=== PATIENT | female | born 1960 | race Caucasian/White ===

== ENCOUNTER 2017-06-16 11:32 | Emergency (ER) | payer MEDICARE ==
[2017-06-16 14:35] LABS: Urine Bilirubin Negative (Negative); Urine Glucose Negative (Negative); Urine Nitrite Negative (Negative)
[2017-06-16 15:17] LABS: Hematocrit 41 % (35-47); Hemoglobin 14.2 g/dl (12.0-16.0); Mean Corpuscular HGB Conc 35 g/dl (31-36); Mean Corpuscular Hemoglobin 30 pg (27-31); Mean Corpuscular Volume 85 fL (80-97); Mean Platelet Volume 7 um3 (7.4-10.4); Red Blood Count 4.77 10^6/ul (4.0-5.4); Red Cell Distribution Width 14 % (10.5-15); White Blood Count 8.3 10^3/ul (3.5-10.8)
[2017-06-16 15:28] LABS: Albumin 4.4 g/dL (3.2-5.2); C Reactive Protein 4.52 mg/L (< 5.00); Calcium 9.9 mg/dL (8.6-10.3); EGFR African American 102.1 (>60); EGFR Non-African American 79.4 (>60); Globulin 3.7 g/dL (2-4); Potassium 3.8 mmol/L (3.5-5.0); Total Bilirubin 0.7 mg/dL (0.2-1.0); Total Protein 8.1 g/dL (6.4-8.9)
--- NOTE | 2017-06-16 16:19 | RAD ---
CLINICAL HISTORY: Right lower quadrant pain. Relevant surgical history includes partial hysterectomy. COMPARISON: CT of the abdomen dated July 02, 2016 TECHNIQUE: Oral contrast only CT examination of the abdomen and pelvis from the lung bases through the initial tuberosities. FINDINGS: VISUALIZED LUNG BASES: The visualized lung bases are grossly clear. There is no pleural effusion. ABDOMEN AND PELVIS: Evaluation of the solid organs and vasculature is limited without intravenous contrast. The liver, spleen, pancreas and adrenal glands are grossly normal in appearance. The gallbladder is normal. The kidneys are normal in appearance without focal mass, calcification or signs of hydronephrosis. The oral contrast has progressed as far as the sigmoid colon. The small and large bowel are not distended.The patient's normal appendix is identified in the right lower quadrant measuring just under 4 mm in diameter with contrast partially filling the lumen. In the right lower quadrant, best depicted on the coronal plane images (image 43), is an ill-defined focus measuring 1.2 x 2 cm in the coronal plane surrounded by vague infiltration of the mesenteric fat (axial image 67). There is no gross retroperitoneal or mesenteric lymphadenopathy. The uterus is surgically absent. The abdominal aorta and iliac arteries are normal in course and diameter. Degenerative changes include multilevel loss of intervertebral disc height involving the lower thoracic and lumbar spine and vacuum disc phenomenon at L5/S1.There are no sinister bone lesions. IMPRESSION: 1. Focus of inflammation in the right lower quadrant peritoneal fat. Differential diagnosis includes epiploic appendicitis, mesenteric panniculitis or omental infarction. 2. Additional chronic, degenerative and iatrogenic findings described in body the report.
[2017-06-16] MEDS ORDERED: Ketorolac INJ* 30 MG/ML 1 ML VIAL IV PUSH ONE (16:23)
[2017-06-16 17:16] VITALS: BP 128/67
--- NOTE | 2017-06-18 15:12 | ED ---
Grace Paulino Gabriel, scribed for Salvador Masters MD on 06/16/17 at 1259 . Abdominal Pain/Female - HPI Summary HPI Summary: This patient is a 57 year old F presenting to [facility] with a chief complaint of ABD pain since 2 days ago that is getting worse. The patient rates the pain 10/ 10 in severity and located in her RLQ. Patient reports nausea. Patient denies vomiting, - History of Current Complaint Chief Complaint: EDAbdPain Stated Complaint: ABD CRAMPING Time Seen by Provider: 06/16/17 12:42 Hx Obtained From: Patient Onset/Duration: Lasting Days - 2, Still Present Timing: Constant Severity Initially: Mild Severity Currently: Severe Pain Intensity: 10 Pain Scale Used: 0-10 Numeric Location: Discrete At: RLQ Associated Signs and Symptoms: Positive: Nausea. Negative: Vomiting Allergies/Adverse Reactions: Allergies Allergy/AdvReac Type Severity Reaction Status Date / Time Iodinated Diagnostic Agents Allergy Rash Verified 09/24/13 17:04 PMH/Surg Hx/FS Hx/Imm Hx Previously Healthy: No Endocrine/Hematology History: Denies: Hx Diabetes Cardiovascular History: Denies: Hx Hypertension, Hx Pacemaker/ICD Respiratory History: Denies: Hx Asthma Sensory History: Denies: Hx Hearing Aid Psychiatric History: Denies: Hx Panic Disorder - Cancer History Hx Chemotherapy: No Hx Radiation Therapy: No - Surgical History Surgery Procedure, Year, and Place: FUSION C4-7 PLATES AND SCREWS 1998; C SECTION X3; MAMMOPLASTY 1989; ABDOMINAL MUSCLE REPAIR 1989; PARTIAL HYSTERECTOMY 1988; Infectious Disease History: No Infectious Disease History: Denies: Traveled Outside the [place] in Last 30 Days - Family History Known Family History: Positive: Other - Hx Breast CA in sister, paternal and maternal aunts - Social History Alcohol Use: Occasionally Hx Substance Use: No Substance Use Type: Reports: None Hx Tobacco Use: No Smoking Status (MU): Never Smoked Tobacco Review of Systems Negative: Fever Positive: Abdominal Pain, Nausea. Negative: Vomiting All Other Systems Reviewed And Are Negative: Yes Physical Exam - Summary Physical Exam Summary: VITAL SIGNS: Reviewed. GENERAL: Patient is a well-developed and nourished female who is lying comfortable in the stretcher. ~Patient is not in any acute respiratory distress. HEAD AND FACE: Normocephalic and atraumatic. EYES: PERRLA, EOMI x 2, No injected conjunctiva. EARS: Hearing grossly intact. Ear canals and tympanic membranes are WNL. MOUTH: Oropharynx within normal limits. NECK: Supple, trachea is midline, no adenopathy, no JVD. CHEST: Symmetric, no tenderness at palpation LUNGS: Clear to auscultation bilaterally. No wheezing or crackles. CVS: RRR, S1 and S2 present, no murmurs or gallops appreciated. ABDOMEN: Soft, RLQ tenderness. No signs of distention. Positive bowel sounds. No rebound no guarding, and no masses palpated. No abdominal bruit or pulsations. EXTREMITIES: FROM in all major joints, no edema, no cyanosis or clubbing. NEURO: Alert and oriented x 3. No acute neurological deficits. Speech is normal. SKIN: Dry and warm Triage Information Reviewed: Yes Vital Signs On Initial Exam: Initial Vitals Temp Pulse Resp BP Pulse Ox 98.1 F 80 16 141/84 100 06/16/17 12:15 06/16/17 12:15 06/16/17 12:15 06/16/17 12:15 06/16/17 12:15 Vital Signs Reviewed: Yes Diagnostics - Vital Signs Vital Signs Temp Pulse Resp BP Pulse Ox 06/16/17 12:15 98.1 F 80 16 141/84 100 - Laboratory Result Diagrams: 06/16/17 15:00 06/16/17 15:00 Lab Statement: Any lab studies that have been ordered have been reviewed, and results considered in the medical decision making process. - CT CT ABD/Pelvis CT Interpretation Completed By: Radiologist - 1. Focus of inflammation in the right lower quadrant peritoneal fat. Differential diagnosis includes epiploic appendicitis, mesenteric panniculitis or omental infarction. 2. Additional chronic, degenerative and iatrogenic findings described in body the report. ED physician has reviewed this report and agrees. - EKG 12:59 Cardiac Rate: NL EKG Rhythm: Sinus Rhythm - at 77 BPM EKG Interpretation: No ST elevations, normal axis Abdominal Pain Fem Course/Dx - Course Course Of Treatment: Labs without any significant abnormalities ABD/Pelvis reveals, per radiologist, 1. Focus of inflammation in the right lower quadrant peritoneal fat. Differential. diagnosis includes epiploic appendicitis, mesenteric panniculitis or omental infarction. 2. Additional chronic, degenerative and iatrogenic findings described in body the report. In the ED course an IV access was obtained. Pt was placed in a implementation coordinator. The patient was given Toridal and Iv fluids and syptomss improved. Since the patient doesnt have appendicitis I believe the patient may have epiploic appendagitis. I have low suspicion for mesenteric since pain resolved with good speed. Will be discharged home and told to take ASA for pain and follow up with pcp. Pt was started with IV fluids. In the ED course, pt has been improving and is stable. Pt is hemodynamically stable, alert and oriented x3. - Diagnoses Provider Diagnoses: Epiploic appendagitis Discharge - Discharge Plan Condition: Stable Disposition: HOME Patient Education Materials: Abdominal Pain (ED) Referrals: Leland Pulido DO [Primary Care Provider] - Additional Instructions: Take Tylenol as need for pain. Follow up with your primary care provider in 3 days. Return to emergency department for nay new or worsening symptoms. The documentation as recorded by the Grace cooley Gabriel accurately reflects the service I personally performed and the decisions made by me, Salvador Masters MD.
== END 2017-06-16 17:16 | disposition home or self-care (01) ==
LOC: ED 11:32
DX: K63.89 Other specified diseases of intestine (principal); R11.10 Vomiting, unspecified; R10.31 Right lower quadrant pain
CPT/HCPCS: 36415; 74176; 80053; 81003; 83690; 83735; 85025; 86140; 93005; 96374; 99285

== ENCOUNTER 2017-09-21 00:44 | Emergency (ER) | payer MEDICARE ==
[2017-09-21] MEDS ORDERED: Morphine INJ* 4 MG/ML 1 ML CARPUJECT IV ONE (02:33)
[2017-09-21] MEDS ORDERED: Ondansetron INJ* 2 MG/ML VIAL IV ONE (02:33)
[2017-09-21] MEDS ORDERED: NS 0.9% 1000 ML* 1,000 ML IV ONE (02:35)
[2017-09-21 03:02] LABS: ABS Basophils 0 10^3/ul (0-0.2); ABS Eosinophils 0 10^3/ul (0-0.6); ABS Lymphocytes 2.5 10^3/ul (1.0-4.8); ABS Monocytes 0.8 10^3/ul (0-0.8); ABS Neutrophils 3.9 10^3/ul (1.5-7.7); ABS Nucleated RBC 0 10^3/ul; Eosinophil % 0 % (0-6); Hematocrit 40 % (35-47); Hemoglobin 13.6 g/dl (12.0-16.0); Lymphocyte % 34.8 % (25-47); Mean Corpuscular HGB Conc 34 g/dl (31-36); Mean Corpuscular Hemoglobin 29 pg (27-31); Mean Corpuscular Volume 86 fL (80-97); Mean Platelet Volume 7 um3 (7.4-10.4); Nucleated Red Blood Cells % 0; Platelet Count 214 10^3/ul (150-450); Red Blood Count 4.68 10^6/ul (4.0-5.4); Red Cell Distribution Width 14 % (10.5-15); White Blood Count 7.3 10^3/ul (3.5-10.8)
[2017-09-21] MEDS ORDERED: Morphine INJ* 4 MG/ML 1 ML SYRINGE (NEW SYRINGE VERSION) ONE (03:10)
[2017-09-21 03:18] LABS: EGFR Non-African American 88.9 (>60)
--- NOTE | 2017-09-21 04:18 | ED ---
Homer Paulino Tecjoon, scribed for Matteo Cain MD on 09/21/17 at 0237 . Abdominal Pain/Female - HPI Summary HPI Summary: This patient is a 57 year old female presenting to [facility] with a chief complaint of RLQ abd pain since yesterday. Patient states that she was seen June for the same pain. She has rather severe asthma and has been coughing a lot. The pain has returned and is very bad. The pain is rated 10/10 in severity. Symptoms aggravated by coughing. Symptoms alleviated by nothing. - History of Current Complaint Chief Complaint: EDAbdPain Stated Complaint: ABD PAIN Time Seen by Provider: 09/21/17 02:03 Hx Obtained From: Patient Onset/Duration: Lasting Days - 2, Still Present Timing: Constant Severity Currently: Severe Pain Intensity: 10 Pain Scale Used: 0-10 Numeric Location: Discrete At: RLQ Radiates: No Aggravating Factor(s): Other: - coughing Alleviating Factor(s): Nothing Allergies/Adverse Reactions: Allergies Allergy/AdvReac Type Severity Reaction Status Date / Time MS Iodinated Diagnostic Allergy Rash Verified 09/24/13 17:04 Agents PMH/Surg Hx/FS Hx/Imm Hx Previously Healthy: Yes Endocrine/Hematology History: Denies: Hx Diabetes Cardiovascular History: Denies: Hx Hypertension, Hx Pacemaker/ICD Respiratory History: Denies: Hx Asthma Sensory History: Denies: Hx Hearing Aid Psychiatric History: Denies: Hx Panic Disorder - Cancer History Hx Chemotherapy: No Hx Radiation Therapy: No - Surgical History Surgery Procedure, Year, and Place: FUSION C4-7 PLATES AND SCREWS 1998; C SECTION X3; MAMMOPLASTY 1989; ABDOMINAL MUSCLE REPAIR 1989; PARTIAL HYSTERECTOMY 1988; Infectious Disease History: No Infectious Disease History: Denies: Traveled Outside the [place] in Last 30 Days - Family History Known Family History: Positive: Other - Hx Breast CA in sister, paternal and maternal aunts - Social History Lives: With Family Alcohol Use: Occasionally Hx Substance Use: Yes Substance Use Type: Reports: Marijuana Substance Use Comment - Amount & Last Used: Every couple months Hx Tobacco Use: No Smoking Status (MU): Never Smoked Tobacco Review of Systems Negative: Fever Positive: Cough Positive: Abdominal Pain All Other Systems Reviewed And Are Negative: Yes Physical Exam - Summary Physical Exam Summary: VITAL SIGNS: Reviewed. GENERAL: Patient is a well-developed and nourished female who is lying comfortable in the stretcher. Patient is not in any acute respiratory distress. HEAD AND FACE: No signs of trauma. No ecchymosis, hematomas or skull depressions. No sinus tenderness. EYES: PERRLA, EOMI x 2, No injected conjunctiva, no nystagmus. EARS: Hearing grossly intact. Ear canals and tympanic membranes are within normal limits. MOUTH: Oropharynx within normal limits. NECK: Supple, trachea is midline, no adenopathy, no JVD, no carotid bruit, no c- spine tenderness, neck with full ROM. CHEST: Symmetric, no tenderness at palpation LUNGS: Clear to auscultation bilaterally. No wheezing or crackles. CVS: Regular rate and rhythm, S1 and S2 present, no murmurs or gallops appreciated. ABDOMEN: Right paraumbilical tenderness. Bowel sounds are normal. EXTREMITIES: FROM in all major joints, no edema, no cyanosis or clubbing. NEURO: Alert and oriented x 3. No acute neurological deficits. Speech is normal and follows commands. SKIN: Dry and warm Triage Information Reviewed: Yes Vital Signs On Initial Exam: Initial Vitals Temp Pulse Resp BP Pulse Ox 99 F 69 20 138/95 96 09/21/17 00:46 09/21/17 00:46 09/21/17 00:46 09/21/17 00:46 09/21/17 00:46 Vital Signs Reviewed: Yes Diagnostics - Vital Signs Vital Signs Temp Pulse Resp BP Pulse Ox 09/21/17 02:00 64 147/90 95 09/21/17 01:51 58 96 09/21/17 01:49 137/75 09/21/17 00:46 99 F 69 20 138/95 96 - Laboratory Result Diagrams: 09/21/17 02:50 09/21/17 02:50 Lab Statement: Any lab studies that have been ordered have been reviewed, and results considered in the medical decision making process. - CT CT Abd/Pel CT Interpretation: Positive (See Comments) - CT Abd/Pel reveals, per radiologist , IMPRESSION: Small umbilical and bilateral inguinal region hernias containing fat. ED physician has reviewed this radiology report. CT Interpretation Completed By: Radiologist Abdominal Pain Fem Course/Dx - Course Course Of Treatment: This patient is a 57 year old female presenting to [facility] with a chief complaint of RLQ abd pain since yesterday. Patient states that she was seen June for the same pain. She has rather severe asthma and has been coughing a lot. The pain has returned and is very bad. CT Abd/Pel reveals, per radiologist, IMPRESSION: Small umbilical and bilateral inguinal region hernias containing fat. ED physician has reviewed this radiology report. Bloodwork Obtained. Urinalysis Obtained. In the ED course the patient was given Morphine, Zofran. Patient will be discharged with a diagnosis of bilateral inguinal hernias containing fat. Patient is advised to follow up with Dr. Dumont ( Surgery) in 3 days. The patient is agreeable with this plan. - Diagnoses Provider Diagnoses: Bilateral inguinal hernia Discharge - Discharge Plan Condition: Stable Disposition: HOME Patient Education Materials: Inguinal Hernia (ED) Referrals: Leland Pulido DO [Primary Care Provider] - 3 Days Benedict Dumont MD [Medical Doctor] - 3 Days Additional Instructions: Return to the ED for any new or worsening symptoms. The documentation as recorded by the Homer cooley Tecjoon accurately reflects the service I personally performed and the decisions made by , Matteo Cain MD.
[2017-09-21 05:26] VITALS: BP 137/82
--- NOTE | 2017-09-21 08:05 | RAD ---
CLINICAL HISTORY: Right lower abdominal pain COMPARISON: June 16, 2017 TECHNIQUE: Multiple contiguous axial CT scans were obtained of the abdomen and pelvis, without intravenous contrast enhancement. Coronal and sagittal multiplanar reformations are submitted for review. Oral contrast was not administered. FINDINGS: The study is limited by the lack of intravenous contrast. This limits evaluation of the solid organs and vasculature. LUNG BASES: The lung bases are clear. LIVER: The liver is normal in shape, size, contour, and attenuation. BILE DUCTS: There is no intrahepatic or extrahepatic biliary dilatation. GALLBLADDER: The gallbladder is normal, without pericholecystic inflammatory change. PANCREAS: The pancreas is normal, without mass or ductal dilatation. SPLEEN: Normal in size and appearance. UPPER GI TRACT: Evaluation of the gastrointestinal tract is limited by incomplete gastric distention. The upper GI tract is unremarkable. SMALL BOWEL AND MESENTERY: The small bowel is normal in contour, course, and caliber. There is no obstruction or dilatation. COLON: The colon is normal in contour, course, caliber. There is no pericolonic inflammatory change. ADRENALS: Normal bilaterally. KIDNEYS: The kidneys are normal in shape, size, contour, and axis. There is no hydronephrosis or nephrolithiasis. BLADDER: The bladder is smooth in contour. PELVIC ORGANS: The pelvic organs are not visualized. AORTA: The aorta is normal. IVC: Unremarkable LYMPH NODES: There is no lymphadenopathy by size criteria. ABDOMINAL WALL: There is a tiny fat-containing umbilical hernia. There are fat-containing inguinal hernias bilaterally. BONES AND SOFT TISSUES: Degenerative changes are noted most pronounced at L5-S1. There is a transitional S1 vertebral body, with partial lumbarization. OTHER: None IMPRESSION: NO HYDRONEPHROSIS OR NEPHROLITHIASIS. NO ACUTE NONCONTRAST CT PATHOLOGY OF THE VISUALIZED ABDOMEN OR PELVIS.
== END 2017-09-21 05:28 | disposition home or self-care (01) ==
LOC: ED 00:44
DX: K40.20 Bilateral inguinal hernia, without obstruction or gangrene, not specified as recurrent (principal); R05 Cough; R10.9 Unspecified abdominal pain
CPT/HCPCS: 36415; 74176; 80053; 82150; 83690; 83735; 85025; 85730; 86140; 96374; 96375; 99283; J2270; J2405

== ENCOUNTER 2019-07-26 15:20 | Emergency (ER) | payer MEDICARE ==
[2019-07-26 15:29] VITALS: BP 127/94
--- NOTE | 2019-07-26 15:38 | ED ---
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 She states that her pain is a 2/ 10 in severity. She states that she currently has photophobia and is nauseas. She denies any LOC or vomiting. She states that her head has a large lump on her L parietal. She states that she has unusual pain in her neck. She has no aggravating or alleviating factors. She states that she has an extensive spinal Hx and has neurological complications from the Hx. She states that she is not really sure what is a symptom of the head injury or chronic at the moment. - History Of Current Complaint Chief Complaint: EDHeadInjury Stated Complaint: POSS HEAD INJURY PER PT Time Seen by Provider: 07/26/19 15:25 Hx Obtained From: Patient Mechanism Of Injury: Fall From A Standing Position Onset/Duration: Started Minutes Ago - CHANNELING MACHINE OPERATOR Onset of Pain: Immediate Severity Currently: Mild Severity Initially: Mild Pain Intensity: 2 Pain Scale Used: 0-10 Numeric Location of Head Injury: Parietal Location: Discrete At: - L parietal Aggravating Factor(s): Other: - Nothing Alleviating Factor(s): Other: - Nothing Associated Signs And Symptoms: Negative - LOC and vomiting, Nausea, Swelling, Visual Changes - Photophobia - Allergies/Home Medications Allergies/Adverse Reactions: Allergies Allergy/AdvReac Type Severity Reaction Status Date / Time MS Iodinated Diagnostic Allergy Rash Verified 09/24/13 17:04 Agents Home Medications: Home Medications Gabapentin CAP(*) [Neurontin 300 CAP(*)] 300 mg PO BEDTIME 07/26/19 [History Confirmed 07/26/19] Hydrocodone/Acetaminophen [Hydrocodone-Acetamin 10-325 mg] 10 mg PO Q6HR PRN 07/03 [History Confirmed 07/26/19] Nabumetone TAB* [Relafen TAB*] 500 mg PO WEEKLY PRN 07/26/19 [History Confirmed 07/26/19] Oxycodone HCl [Oxycodone HCl ER 30 mg] 30 mg PO BID PRN 07/26/19 [History Confirmed 07/26/19] PMH/Surg Hx/FS Hx/Imm Hx Previously Healthy: Yes Endocrine/Hematology History: Denies: Hx Diabetes Cardiovascular History: Denies: Hx Hypertension, Hx Pacemaker/ICD Respiratory History: Denies: Hx Asthma Sensory History: Denies: Hx Hearing Aid Neurological History: 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 Psychiatric History: Denies: Hx Panic Disorder - Cancer History Hx Chemotherapy: No Hx Radiation Therapy: No - Surgical History Surgical History: Yes Surgery Procedure, Year, and Place: FUSION C4-7 PLATES AND SCREWS 1998; C SECTION X3; MAMMOPLASTY 1989; ABDOMINAL MUSCLE REPAIR 1989; PARTIAL HYSTERECTOMY 1988; - Immunization History Immunizations Up to Date: Yes Infectious Disease History: No Infectious Disease History: Denies: Traveled Outside the [place] in Last 30 Days - Family History Known Family History: Positive: Other - Hx Breast CA in sister, paternal and maternal aunts - Social History Occupation: Retired Lives: Alone Alcohol Use: Occasionally Hx Substance Use: Yes Substance Use Type: Reports: Marijuana Substance Use Comment - Amount & Last Used: Every couple months Hx Tobacco Use: No Smoking Status (MU): Never Smoked Tobacco Review of Systems Positive: Photophobia ENT: Other - Swelling on L parietal head Positive: Nausea. Negative: Vomiting Neurological: Negative - LOC All Other Systems Reviewed And Are Negative: Yes Physical Exam - Summary Physical Exam Summary: VITAL SIGNS: Reviewed. GENERAL: Patient is a well-developed and nourished female who is lying comfortable in the stretcher. Patient is not in any acute respiratory distress. HEAD AND FACE: Hematoma to the L parietal area. EYES: PERRLA, EOMI x 2, No injected conjunctiva, no nystagmus. EARS: Hearing grossly intact. Ear canals and tympanic membranes are within normal limits. MOUTH: Oropharynx within normal limits. NECK: Supple, trachea is midline, no adenopathy, no JVD, no carotid bruit, no c- spine tenderness, neck with full ROM. CHEST: Symmetric, no tenderness at palpation LUNGS: Clear to auscultation bilaterally. No wheezing or crackles. CVS: Regular rate and rhythm, S1 and S2 present, no murmurs or gallops appreciated. ABDOMEN: Soft, non-tender. No signs of distention. No rebound no guarding, and no masses palpated. Bowel sounds are normal. EXTREMITIES: FROM in all major joints, no edema, no cyanosis or clubbing. NEURO: Alert and oriented x 3. No acute neurological deficits. Speech is normal and follows commands. SKIN: Dry and warm Triage Information Reviewed: Yes Vital Signs On Initial Exam: Initial Vitals Temp Pulse Resp BP Pulse Ox 97.5 F 72 18 127/94 100 07/26/19 15:21 07/26/19 15:21 07/26/19 15:21 07/26/19 15:21 07/26/19 15:21 Vital Signs Reviewed: Yes Procedures - Sedation Patient Received Moderate/Deep Sedation with Procedure: No Diagnostics - Vital Signs Vital Signs Temp Pulse Resp BP Pulse Ox 07/26/19 15:21 97.5 F 72 18 127/94 100 - Laboratory Lab Statement: Any lab studies that have been ordered have been reviewed, and results considered in the medical decision making process. - CT Brain CT CT Interpretation Completed By: Radiologist Summary of CT Findings: No traumatic brain injury or acute intracranial process evident. LEFT parietal scalp hematoma. Negative for fracture. ED physician has reviewed this case. Cervical Spine CT CT Interpretation Completed By: Radiologist Summary of CT Findings: No CT evidence for acute traumatic cervical spine injury. Accelerated degenerative arthropathy at the levels flanking the multisegment cervical fusion compared with the 2014 MRI. ED physician has reviewed this report. 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 She states that her pain is a 2/10 in severity. She states that she currently has photophobia and is nauseous. She denies any LOC or vomiting. She states that her head has a large lump on her L parietal. She states that she has unusual pain in her neck. She has no aggravating or alleviating factors. She states that she has an extensive spinal Hx and has neurological complications from the Hx. She states that she is not really sure what is a symptom of the head injury or chronic at the moment. Head CT and C-spine CT no acute pathology. full report as above. At this point, I discussed all the findings and test results with the patient. Patient was instructed to return to the emergency room immediately if any of the symptoms return or worsen.Plan of care was discussed with the patient and patient understands and agrees. All questions were answered at patient satisfaction. Patient understands and agrees. Neurological exam before discharge: Patient is alert and oriented x 3. No acute neurological deficits. Patient's vital signs are stable. Patient is to follow up with CPP in the next 2 3 days. They understand and agree. The plan of care was discussed with the patient and patient understands and agrees with the plan of care. All questions were answered at patient satisfaction. There were no further complaints or concerns - Diagnoses Differential Diagnosis/HQI/PQRI: Cerebral Contusion, Concussion Without LOC, Contusion, Hematoma, Intracranial Bleed Provider Diagnoses: Head contusion Discharge ED - Sign-Out/Discharge Documenting (check all that apply): Patient Departure - discharge - Discharge Plan Condition: Stable Disposition: HOME Patient Education Materials: Head Injury (ED) Referrals: Leland Pulido DO [Primary Care Provider] - 2 Days Additional Instructions: PLEASE FOLLOW UP WITH YOUR PRIMARY CARE PHYSICIAN IN 1-3 DAYS AND RETURN TO THE EMERGENCY DEPARTMENT FOR ANY NEW OR WORSENING SYMPTOMS. - Billing Disposition and Condition Condition: STABLE Disposition: Home - Attestation Statements Document Initiated by Scooby: Yes Documenting Scribe: Andrew Prajapati Provider For Whom Scooby is Documenting (Include Credential): Dain Masters MD Scribe Attestation: Andrew Paulino, scribed for Dain Masters MD on 07/26/19 at 1816. Scribe Documentation Reviewed: Yes Provider Attestation: The documentation as recorded by the Andrew cooley accurately reflects the service I personally performed and the decisions made by , Dain Masters MD Status of Scribe Document: Viewed
== END 2019-07-26 16:21 | disposition home or self-care (01) ==
LOC: ED 15:20
DX: S00.93XA Contusion of unspecified part of head, initial encounter (principal); W01.0XXA Fall on same level from slipping, tripping and stumbling without subsequent striking against object, initial encounter; Y92.009 Unspecified place in unspecified non-institutional (private) residence as the place of occurrence of the external cause; Z91.041 Radiographic dye allergy status; Z90.711 Acquired absence of uterus with remaining cervical stump; Z79.899 Other long term (current) drug therapy
CPT/HCPCS: 70450; 72125; 99282